=== PATIENT | male | born 1955 | race Caucasian/White ===

== ENCOUNTER → 2017-03-12 | Day surgery (SDC) | payer BC ==
[~2017-03-12] MED LIST: AMLODIPINE BESY10 MG PO; ASPIRIN PO; ASPIRIN81 M2 PO; CELEXA10 MG PO; GLUCAGEN1 MG; HUMALOG100 U/ML SUBQ; HUMALOG100 UNIT/2 INJ; LANTUS SOL100 UNIT/1 INJ; LANTUS100 U/ML INJ; LISINOPRIL20 MG PO; PANTOPRAZOLE SO40 MG PO; PRAVASTATIN SOD10 MG PO; TYL325 PO; VASOTEC PO; WELCHOL625 MG PO
--- NOTE | ~2017-03-12 | OR ---
Unit #: [id number] #: [id number] Patient: GAYE JOHN [id number] [address] [address] [id number] MR#: [id number] NAME: GAYE JOHN. ROOM: Date of Procedure: 03/12/2017 Admission Date: 03/12/2017 Surgeon: Piter Moura M.D. : 1955 Attending Physician: Piter Moura M.D. Primary Care Physician: Brenden Mays M.D. OPERATIVE REPORT PRIMARY CARE PHYSICIAN Brenden Mays M.D. PREOPERATIVE DIAGNOSES The patient presented for colorectal cancer screening; however, he did mention postprandial dyspepsia and epigastric pain. As a result, a diagnostic upper endoscopy is also being done. PROCEDURES PERFORMED Upper gastrointestinal endoscopy and biopsy as well as colonoscopy with polypectomy. POSTOPERATIVE DIAGNOSES For upper endoscopy: 1. The patient had single duodenal ulcer in the posterior aspect of the duodenal bulb. This was about 8 mm in size grayish-white ulcer base. No stigmata of recent bleed. In addition, the patient had mild prepyloric antral gastritis. 2. Rest of the examination up to third part of duodenum was normal. A biopsy obtained from the antrum for CLOtest. For colonoscopy: 1. Single sessile polyp in the transverse colon. The latter was about 8 mm in size. It was removed using snare polypectomy. 2. Mild sigmoid and descending colon diverticulosis. 3. Rest of the examination up to cecum was normal. The quality of prep was excellent. RECOMMENDATIONS 1. The patient is being started on pantoprazole 40 mg p.o. daily. He was advised to use it for 3 months to ensure healing of the duodenal ulcer. 2. Follow up results of polyp histology and CLOtest. 3. Repeat colonoscopy in 5 years. SEDATION USED MAC. DESCRIPTION OF PROCEDURE Following detailed explanation of potential risks and complications of an upper endoscopy and a colonoscopy, namely perforation, bleeding, and complications related to sedation, the patient was brought to GI lab and laid in the left lateral decubitus position. Lubricated tip of the Olympus video upper endoscope was passed through bite block into the Unit #: [id number] #: [id number] Patient: GAYE JOHN proximal esophagus under direct vision. The entire esophageal mucosa was examined and appeared normal. Z-line was nicely demarcated, there being no esophagitis or hiatus hernia. The scope was then advanced into the gastric cavity and the latter was insufflated. Mucosa of the fundus, body, and antrum examined. The patient was noted to have mild prepyloric antral diffuse erythema. Pylorus was intubated with visualization of the duodenal bulb. The latter was noted to have posterior duodenal ulcer. This was about 8 mm in size grayish-white ulcer base and no stigmata of recent bleed. Second and third part of the duodenum normal. Upon withdrawal and retroflexion, incisura, cardia, and greater curve examined and biopsy obtained from the antrum for CLOtest. The scope was then withdrawn in the distal esophagus. The entire esophageal mucosa was examined all the way up to pharynx. No additional findings noted. The examination table was then turned by 180 degrees and the patient positioned for a colonoscopy. A digital rectal examination was performed, which was normal. Lubricated tip of the Olympus video colonoscope was inserted through the anus and advanced under direct vision. The scope was advanced and passed up to sigmoid into descending colon. Multiple small diverticula were noted in this area. The scope tip was then navigated all the way up to cecum with visualization of ileocecal valve and the appendiceal orifice. Preparation was excellent with good visualization and photodocumentation was obtained. Last few inches of the terminal ileum also visualized after intubation of the ileocecal valve and appeared normal. Successive segments of the colonic mucosa were examined upon withdrawal. A single sessile polyp about 8 mm in size was found in the transverse colon. The latter was removed using snare polypectomy. The polyp was retrieved and sent for histology. Excellent hemostasis was achieved and photodocumentation was obtained. No additional polyps were found. The patient did have left-sided diverticulosis. Otherwise, remaining examination was normal. No internal hemorrhoids noted at the anal verge. The scope was then withdrawn. The patient returned to the recovery area. He tolerated the procedure without any postprocedure complications. Dictated by.Pedro Luis. Jessica Aguilar TD: 03/13/2017 02:21 JOB #: [id number] OPERATIVE REPORT Page 1 of 1 X Piter Moura MD PROCEDURE OPERATIVE NOTE
== END | disposition home or self-care (01) ==
LOC: COPS 07:30
DX: Z12.11 Encounter for screening for malignant neoplasm of colon (principal); K63.5 Polyp of colon; K26.9 Duodenal ulcer, unspecified as acute or chronic, without hemorrhage or perforation; K29.70 Gastritis, unspecified, without bleeding; K57.30 Diverticulosis of large intestine without perforation or abscess without bleeding; I10 Essential (primary) hypertension; E11.9 Type 2 diabetes mellitus without complications; E78.5 Hyperlipidemia, unspecified; Z79.899 Other long term (current) drug therapy; Z88.2 Allergy status to sulfonamides; Z88.8 Allergy status to other drugs, medicaments and biological substances; Z98.890 Other specified postprocedural states; Z79.82 Long term (current) use of aspirin; Z79.4 Long term (current) use of insulin
CPT/HCPCS: 82947; 87077; 88305; J2250